=== PATIENT | male | born 1965 | race Caucasian/White ===

== ENCOUNTER → 2021-12-30 17:50 | Outpatient (CLI) | payer OTHER, SELFPAY ==
--- NOTE | 2021-12-30 | DI.RAD_ITS ---
Exam(s) XR SHOULDER RT COMPLETE 2+V EXAM: XR SHOULDER RT COMPLETE 2+V CLINICAL HISTORY: PAIN IN RIGHT SHOULDER. TECHNIQUE: 2D digital imaging was performed. COMPARISON: No exams were available for comparison FINDINGS: 3 views There is no evidence of fracture or dislocation nor significant degenerative changes in the glenohume ral joint. The main finding here is a prominent chunk of calcium in the subacromial space just above the greater tuberosity, consistent with calcific rotator cuff tendinitis. This calcific density onesimo sures approximately 9 x 5 millimeters. There are mild degenerative changes in the ipsilateral AC joint. IMPRESSION: Calcific rotator cuff tendinitis, as described above. DATA REPOSITORY: RADIATION DOSE DELIVERED:
--- NOTE | 2021-12-30 18:36 | DI.VRAD_ITS ---
PROCEDURE INFORMATION: Exam: XR Right Shoulder Exam date and time: 12/30/2021 6:09 PM Age: 56 years old Clinical indication: Other: Pain TECHNIQUE: Imaging protocol: Radiologic exam of the Right shoulder. Views: 2 or more views. COMPARISON: No relevant prior studies available. FINDINGS: Bones/joints: Mild degenerative changes of the acromioclavicular joint, manifest by joint space narrowing marginal osteophyte formation. No acute fracture or dislocation. 10 x 8 mm calcific density in the region of the right distal supraspinatus tendon, which can be seen with calcific tendinopathy. Lungs: Calcified granuloma within the right lung apex. Soft tissues: Normal. IMPRESSION: 1. No acute fracture or dislocation. 2. 10 x 8 mm calcific density in the region of the right distal supraspinatus tendon, which can be seen with calcific tendinopathy. Dictated and Authenticated by: Zan Castorena MD. Ordering:CANDY Viveros MD
== END ==
PROVIDERS: Visit Provider Physician Assistant Medical
DX: M75.81 Other shoulder lesions, right shoulder (principal)
CPT/HCPCS: 73030

== ENCOUNTER 2023-08-30 09:46 | Outpatient (REF) | payer OTHER, SELFPAY ==
[2023-08-30 16:12] LABS: Abs Immature Grans 0.01 10^3/uL (0.0-0.06); Absolute Basophil Count 0.03 10^3/uL (0.0-0.2); Absolute Eosinophil Count 0.07 10^3/uL (0.0-0.7); Absolute Lymphocyte Count 1.63 10^3/uL (1.2-3.4); Absolute Monocyte Count 0.35 10^3/uL (0.1-0.8); Absolute Neutrophil Count 3.06 10^3/uL (1.2-6.7); Basophils % 0.6 %; Eosinophils % 1.4 %; HCT 42.8 % (40.0-50.0); HGB 14.4 g/dL (13.5-17.5); Immature Grans % 0.2 %; Lymphocytes % 31.7 %; MCH 30.6 pg (27.0-33.0); MCHC 33.6 % (32.0-36.0); MCV 91 fL (80-95); MPV 11.5 fL (8.0-11.0); Monocytes % 6.8 %; Neutrophils % 59.3 %; Platelet Count 212 10^3/uL (130-400); RBC 4.71 10^6/uL (4.36-5.78); RDW 12.7 % (11.8-14.1); RDW-SD 42.4 fL; WBC 5.15 10^3/uL (4.4-10.8)
[2023-08-30 16:52] LABS: ALT 34 U/L (16-63); AST 15 U/L (15-37); Albumin 3.7 g/dL (3.4-5.0); Alkaline Phosphatase 97 U/L (46-116); Anion Gap 8.3 mmol/L (3-11); BUN 14 mg/dL (7-18); Bilirubin, Total 0.6 mg/dL (0.2-1.0); CO2 27.7 mmol/L (21.0-32.0); CREATININE 0.9 mg/dL (0.70-1.30); Calcium 9.1 mg/dL (8.5-10.1); Calculated LDL 148 mg/dL (<100); Chloride 106 mmol/L (98-107); Cholesterol 230 mg/dL (<200); Estimated GFR 100.24 (mL/min/1.73m2); Glucose 95 mg/dL (74-106); HDL Cholesterol 50 mg/dL (40-60); Potassium 4.6 mmol/L (3.5-5.1); Sodium 142 mmol/L (136-145); Total Protein 6.8 g/dL (6.4-8.2); Triglyceride 161 mg/dL (<150); Vitamin D 25 Total 30.8 ng/mL (30-100)
== END 2023-08-30 09:47 | disposition home or self-care (01) ==
LOC: NCHCN 09:46
PROVIDERS: Visit Provider Student in an Organized Health Care Education/Training Program
DX: E78.5 Hyperlipidemia, unspecified (principal); E55.9 Vitamin D deficiency, unspecified; R03.0 Elevated blood-pressure reading, without diagnosis of hypertension
CPT/HCPCS: 80053; 80061; 82306; 85025

== ENCOUNTER 2024-03-24 12:47 | Outpatient (REF) | payer OTHER, SELFPAY ==
[2024-03-24 16:53] LABS: ALT 28 U/L (16-63); AST 25 U/L (15-37); Albumin 3.6 g/dL (3.4-5.0); Alkaline Phosphatase 95 U/L (46-116); BUN 20 mg/dL (7-18); Bilirubin, Total 0.66 mg/dL (0.2-1.0); CREATININE 1.2 mg/dL (0.70-1.30); Calcium 8.7 mg/dL (8.5-10.1); Calculated LDL 158 mg/dL (<100); Chloride 108 mmol/L (98-107); Cholesterol 224 mg/dL (<200); Estimated GFR 70.98 (mL/min/1.73m2); Glucose 107 mg/dL (74-106); HDL Cholesterol 50 mg/dL (40-60); Potassium 4.2 mmol/L (3.5-5.1); Sodium 142 mmol/L (136-145); Total Protein 6.7 g/dL (6.4-8.2); Triglyceride 81 mg/dL (<150)
== END 2024-03-24 12:48 | disposition home or self-care (01) ==
LOC: NCHCN 12:47
PROVIDERS: Visit Provider Student in an Organized Health Care Education/Training Program
DX: E78.5 Hyperlipidemia, unspecified (principal)
CPT/HCPCS: 80053; 80061

== ENCOUNTER 2024-06-14 16:58 | Outpatient (REF) | payer OTHER, SELFPAY | END 2024-06-14 16:59 | disposition home or self-care (01) | LOC: LBN 16:58 | PROVIDERS: Visit Provider Physician Assistant Medical | DX: J02.9 Acute pharyngitis, unspecified (principal) | CPT/HCPCS: 87070 ==

== ENCOUNTER 2024-09-29 01:09 | Outpatient (CLI) | payer OTHER, SELFPAY ==
--- NOTE | 2024-09-29 14:19 | DI.RAD_ITS ---
Exam(s) XR FOOT LT COMPLETE EXAM: XR FOOT LT COMPLETE CLINICAL HISTORY: Left foot pain/ganglion,M79.672,M67.472. TECHNIQUE: 2D digital imaging was performed. Three views. COMPARISON: No exams were available for comparison FINDINGS: BONES: No acute fracture is present. No bony destructive lesion is seen. Small heel spurs. JOINTS: No dislocation present. No significant degenerative changes. Plantar arch is maintained. SOFT TISSUE: No visible focal soft tissue mass or calcification. IMPRESSION: Small heel spurs. DATA REPOSITORY: RADIATION DOSE DELIVERED:
--- NOTE | 2024-09-29 16:34 | DI.RAD_ITS ---
Exam(s) XR ANKLE LT COMPLETE EXAM: XR ANKLE LT COMPLETE CLINICAL HISTORY: medial ankle pain, bony protrusion, M25.579 TECHNIQUE: 2D digital imaging was performed. Three views. COMPARISON: CR XR FOOT LT COMPLETE from 09/29/2024 CR XR FOOT RT COMPLETE from 09/29/2024 FINDINGS: BONES: No acute fracture is present. No bony destructive lesion is seen. Small heel spurs. Mild spurring at the tip of the medial malleolus and adjacent aspect of the talus. JOINTS:The ankle mortise is normally aligned. SOFT TISSUE: Normal. IMPRESSION: Unremarkable mild degenerative changes of medial tibiotalar joint. Small heel spurs. DATA REPOSITORY: RADIATION DOSE DELIVERED:
--- NOTE | 2024-09-29 16:34 | DI.RAD_ITS ---
Exam(s) XR FOOT RT COMPLETE EXAM: XR FOOT RT COMPLETE CLINICAL HISTORY: pain in R foot, mucoid cyst of R 2nd toe, M79.671, M67.40. TECHNIQUE: 2D digital imaging was performed. Three views. COMPARISON: CR XR FOOT LT COMPLETE from 09/29/2024 FINDINGS: BONES: No acute fracture is present. No bony destructive lesion is seen. Spurring at the dorsal aspect of the navicular. JOINTS: No dislocation present. Spurring at the tip of the medial malleolus and adjacent aspect of the talus. Plantar arch is maintained. SOFT TISSUE: Minimal calcification at the distal Achilles tendon. IMPRESSION: Dorsal navicular spur. Mild degenerative changes medial tibial talar joint. DATA REPOSITORY: RADIATION DOSE DELIVERED:
== END 2024-09-29 01:29 ==
PROVIDERS: PCP Student in an Organized Health Care Education/Training Program; Visit Provider Podiatrist
DX: M79.672 Pain in left foot (principal); M67.472 Ganglion, left ankle and foot; M79.671 Pain in right foot; M77.31 Calcaneal spur, right foot
CPT/HCPCS: 73610; 73630

== ENCOUNTER 2024-11-29 15:47 | Outpatient (REF) | payer OTHER, SELFPAY | END 2024-11-29 15:48 | disposition home or self-care (01) | LOC: LBN 15:47 | PROVIDERS: PCP Student in an Organized Health Care Education/Training Program; Visit Provider Physician Assistant Medical | DX: M67.441 Ganglion, right hand (principal) | CPT/HCPCS: 87070; 87205 ==

== ENCOUNTER 2024-12-09 10:54 | Outpatient (CLI) | payer OTHER, SELFPAY ==
--- NOTE | 2024-12-09 10:15 | DI.RAD_ITS ---
Exam(s) XR SHOULDER RT COMPLETE 2+V EXAM: XR SHOULDER RT COMPLETE 2+V CLINICAL HISTORY: RIGHT SHOULDER PAIN. TECHNIQUE: 2D digital imaging was performed. Two views. COMPARISON: CR,XR XR SHOULDER RT COMPLETE 2+V from 12/30/2021 FINDINGS: BONES: No acute fracture is present. No bony destructive lesion is seen. JOINTS: No dislocation present. There is mild narrowing of the glenohumeral joint space. No significant periarticular spurring. Minimal spurring at the AC joint. SOFT TISSUE: Calcifications are again noted above the greater tuberosity consistent with calcific tendinosis. IMPRESSION: Calcific tendinosis. Mild degenerative changes of the glenohumeral and AC joints. DATA REPOSITORY: RADIATION DOSE DELIVERED:
== END 2024-12-09 10:55 | disposition home or self-care (01) ==
LOC: DIORS 10:54
PROVIDERS: PCP Student in an Organized Health Care Education/Training Program; Visit Provider Student in an Organized Health Care Education/Training Program
DX: M25.511 Pain in right shoulder (principal)
CPT/HCPCS: 73030

== ENCOUNTER 2024-12-29 03:29 | Outpatient (CLI) | payer OTHER, SELFPAY ==
--- NOTE | 2024-12-29 07:00 | DI.MRI_ITS ---
Exam(s) MR UPPER JOINT RT WO EXAM: MR UPPER JOINT RT WO CLINICAL HISTORY: R SHOULDER PAIN, ? RTC TEAR,calcific tendinitis,m75.31. TECHNIQUE: Multiplanar multisequence MRI was performed. COMPARISON: None. FINDINGS: BONES: There is no fracture or contusion pattern. JOINTS:The acromioclavicular joint shows mild inferior spurring. The glenohumeral joint shows no fluid. TENDONS: Supraspinatus: There are calcifications seen adjacent to the supraspinatus tendon, consistent with calcific tendinosis. A small amount of high signal in the distal supraspinatus tendon which could represent tendinosis versus partial tear. Infraspinatus: Unremarkable. Subscapularis: Unremarkable. Teres [place]: Unremarkable. Biceps and [place]: Unremarkable. MUSCLES: Unremarkable. GLENOID LABRUM: Unremarkable on this noncontrast examination. SOFT TISSUES: There are calcifications seen adjacent to the supraspinatus tendon, consistent with calcific tendinosis. BURSAE: Subacromial and subdeltoid bursae shows minimal fluid. IMPRESSION: Calcific tendinosis. Partial tear vs tendinosis of the distal supraspinatus tendon. DATA REPOSITORY:
== END 2024-12-29 03:49 ==
LOC: DI 03:30
PROVIDERS: PCP Student in an Organized Health Care Education/Training Program; Visit Provider Student in an Organized Health Care Education/Training Program
DX: M75.31 Calcific tendinitis of right shoulder (principal)
CPT/HCPCS: 73221

== ENCOUNTER 2025-02-25 07:30 | Day surgery (SDC) | payer OTHER, SELFPAY ==
--- NOTE | 2025-02-25 07:24 | W.PM.DSUDISC ---
Date of service: 02/25/25 Discharge Plan Disposition Patient Disposition: Home Condition: Good Discharge Details Reason For Visit: Excision cyst RIF Attending Provider: Randy Muñoz Primary Care Provider: Sreekanth Miner Home Meds and New Rx's Prescriptions: New acetaminophen 500 mg tablet 1,000 mg PO TID Qty: 90 0RF ibuprofen 600 mg tablet 600 mg PO TID PRN (Reason: pain) Qty: 90 0RF Continued rosuvastatin 5 mg tablet 5 mg PO DAILY Discharge Instructions Additional Instructions: Cyst Removal Discharge Instructions Activity: You should keep the hand elevated as much as possible for the first few days. You may use the other fingers as tolerated but avoid trying to do too much too soon. You may perform light activities with the splint in place. Dressing/Cast: You may remvove your dressing after three days. You may shower and get the incision wet at this time. You may cover the incision with a Band-Aid if desired. Medications: - You should take Tylenol and Ibuprofen for pain control. - You may apply ice over the finger. Follow-up: 7-10 days Stand Alone Forms: Portal Information Referrals: Randy Muñoz MD [ [facility] STAFF PHYSICIAN, Orthopaedic Surgical] - 03/06/25 9:00 am Activity:: Activity as Tolerated Remove Dressings/Wound Care:: 72 hours Shower/Bathe:: 72 hours Diet:: As Tolerated Discharge Orders Discharge Orders: Discharge Order (Routine); Ordered 02/25/25 Ordered By: Gerber Hassan DS: Diagnosis Discharge Diagnosis (1) Mucous cyst of digit of right hand: Status: Acute
[2025-02-25] MEDS: Cephalexin 500 MG CAP 1000 MG PO (08:08)
[2025-02-25 08:09] VITALS: BP 118/85; PULSE 77; RESP 16; TEMP 36.2; O2SAT 99
[2025-02-25] MEDS: Sodium Bicarbonate 50 MEQ/50 ML VIAL (09:46)
[2025-02-25] MEDS: Lidocaine 1% Pres-Free W/EPI 1/200,000 10 ML VIAL (09:46)
[2025-02-25 10:10] VITALS: BP 114/70; PULSE 68; RESP 16; TEMP 36.2; O2SAT 95
--- NOTE | 2025-02-25 12:27 | ROE_ITS ---
Operative Note Operative Note PRE-OP DIAGNOSIS: Mucous Cyst - Right Index Finger POST-OP DIAGNOSIS: same PROCEDURE: Mucous Cyst Excision - Right Index Finger SURGEON: Randy Muñoz ANESTHESIA TYPE: Local By Surgeon Refer to Anesthesia Record ESTIMATED BLOOD LOSS: 0 PATHOLOGY: none sent COMPLICATIONS: None Patient was transported to: same day Patient's condition: stable Indications: I have seen Roberta in clinic for symptoms of a digital mucous cyst. The mass persisted and caused pain to direct contact and with use. The diagnosis of a mucous cyst was made. The symptoms had not responded to conservative measures. I discussed cyst excision with the patient. I reviewed the risks of the procedure to include, but not limited to, bleeding, infection, pain, stiffness, recurrence, damage to nerves or vessels. Despite these risks, the patient elected to proceed. Findings: There was a cyst of the distal phalanx, arising from the DIP joint. The cyst and its capsule was removed and an arthrotomy at the cyst location performed. Removal of bony prominence/osteophyte at the base of distal phalanx was also performed. Procedure Description: Roberta was greeted in the preoperative holding area where the correct side was identified and marked. The consent was reviewed with the patient and signed. All questions were answered. He was taken back to the operating room. The patient was placed into the supine position on the operating room table with the right arm on an arm board. All bony prominences were well padded. No prophylactic antibiotics were administered since this was a clean, elective hand surgical case. The right arm was then prepped with Chloraprep and draped in a standard fashion with [facility] kinette and extremity drape. A timeout to confirm correct identity, side and site, procedure, allergies, anesthesia, and medical concerns was performed. A digital block was then performed using 1% lidocaine with epinephrine and buffered with sodium bicarbonate. This was allowed time to set up completely and was tested before proceeding with the case. A longitudinal incision was then made overlying the cyst. The skin was incised sharply. Full-thickness flaps were then elevated to expose the cyst. The cyst capsule was then removed with a rongeur and followed back towards the DIP joint. Using the rongeur and a tenotomy scissor, I was able to penetrate into the DIP joint creating a small arthrotomy from the origin of the mucous cyst. The finger was irrigated and once again checked to make sure that all components of the cyst were removed. A bony prominence from the base of the distal phalanx was also resected with rongeur. The skin was then closed using a #4-0 nylon in interrupted fashion. The finger was dressed with Xeroform, 4 x 4, conformer dressing. The patient tolerated the procedure well and was returned to the Same Day Surgery area in a stable condition suffering no known complication. Date of Procedure: 02/25/25
== END 2025-02-25 10:23 | disposition home or self-care (01) ==
LOC: SUR 07:30
PROVIDERS: PCP Student in an Organized Health Care Education/Training Program; Visit Provider Student in an Organized Health Care Education/Training Program
PROC: (CPT 26160; principal; 2025-02-25 09:45)
DX: M67.441 Ganglion, right hand (principal)
CPT/HCPCS: 26236; 26160; J2004

== ENCOUNTER 2025-03-19 11:52 | Outpatient (REF) | payer OTHER, SELFPAY ==
[2025-03-19 17:35] LABS: Abs Immature Grans 0.02 10^3/uL (0.0-0.06); HCT 41.6 % (40.0-50.0); HGB 13.4 g/dL (13.5-17.5); Immature Grans % 0.3 %; MCH 29.5 pg (27.0-33.0); MCHC 32.2 % (32.0-36.0); MCV 92 fL (80-95); MPV 11.0 fL (8.0-11.0); Platelet Count 231 10^3/uL (130-400); RBC 4.54 10^6/uL (4.36-5.78); RDW 12.2 % (11.8-14.1); RDW-SD 41.0 fL; WBC 6.20 10^3/uL (4.4-10.8)
[2025-03-19 17:48] LABS: ALT 31 U/L (10-49); AST 22 U/L (<34); Albumin 4.2 g/dL (3.2-5.0); Alkaline Phosphatase 82 U/L (46-116); Anion Gap 9.8 mmol/L (3-11); BUN 17 mg/dL (9-23); Bilirubin, Total 0.6 mg/dL (0.2-1.2); CO2 25.2 mmol/L (20.0-31.0); Calcium 9.1 mg/dL (8.3-10.6); Chloride 107 mmol/L (98-107); Cholesterol 162 mg/dL (<200); Glucose 91 mg/dL (74-106); HDL Cholesterol 44 mg/dL (>or=40); Potassium 4.3 mmol/L (3.5-5.1); Sodium 142 mmol/L (136-145); TSH (W/Ref FT4) 1.80 uIU/mL (0.55-4.78); Total Protein 6.7 g/dL (5.7-8.2)
[2025-03-20 09:28] LABS: PSA, Screening 0.3 ng/mL (<=3.5)
== END 2025-03-19 11:53 | disposition home or self-care (01) ==
LOC: NCHCN 11:52
PROVIDERS: PCP Student in an Organized Health Care Education/Training Program; Visit Provider Student in an Organized Health Care Education/Training Program
DX: Z12.5 Encounter for screening for malignant neoplasm of prostate (principal); R53.83 Other fatigue; E78.5 Hyperlipidemia, unspecified
CPT/HCPCS: 80053; 80061; 84153; 84443; 85025